=== PATIENT | female | born 1940 | race African-American/Black ===

== ENCOUNTER 2019-12-11 16:32 | Inpatient (IN) | payer OTHER ==
[~2019-12-11] VITALS: Ht 170.2 cm; Wt 122.5 kg
[2019-12-11 16:41] VITALS: BP 151/88
[2019-12-11] MEDS ORDERED: RISPERDAL0.5 MG PO (17:24)
[2019-12-11] MEDS ORDERED: ZOLOFT 50 MG TA50 MG PO (17:24)
[2019-12-11] MEDS ORDERED: DEPAKOTE125 MG PO (17:25)
[2019-12-11] MEDS ORDERED: SIMVASTATIN80 MG PO (17:26)
[2019-12-11] MEDS ORDERED: NORVASC 2.5 MG2.5 M1 PO (17:26)
--- NOTE | 2019-12-11 17:27 | NUR ---
PT WANDERING AROUND ROOM COMBATIVE, NOTIFED MD OF THIS. MD TO BEDSIDE
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
[2019-12-11 18:22] LABS: ABSOLUTE NEUTROPHILS 2.7 thou/uL (1.4-8.2); BASOPHILS 0.8 % (0.0-2.0); HEMATOCRIT 42.2 % (37.0-47.0); HEMOGLOBIN 13.5 gm/dL (12.0-15.0); LYMPHOCYTES 30.9 % (24.0-44.0); MCV 81.1 fL (80.0-100.0); MONOCYTES 5.9 % (1.0-8.0); PLATELET COUNT 168 thou/uL (150-400); POLYS 59.4 % (36.0-66.0); RDW 16.1 % (10.5-14.5); WBC 4.6 thou/uL (4.0-11.0)
[2019-12-11 18:27] LABS: ANION GAP 8 mmol/L (7-16); BUN 25 mg/dL (7-18); CALCIUM 8.9 mg/dL (8.5-10.1); CHLORIDE 106 mmol/L (98-107); CO2 28 mmol/L (21-32); CREATININE 1.2 mg/dL (0.6-1.0); GLUCOSE 118 mg/dL (74-106); POTASSIUM 3.4 mmol/L (3.5-5.1); SODIUM 142 mmol/L (136-145)
[2019-12-11 18:33] LABS: ALBUMIN 3.5 g/dL (3.4-5.0); DIRECT BILIRUBIN < 0.1 mg/dL (<0.1-0.2); SGOT 13 U/L (15-37); SGPT 17 U/L (30-65); TOTAL BILIRUBIN 0.2 mg/dL (<0.1-1.0); TOTAL PROTEIN 7.7 g/dL (6.4-8.2)
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
[2019-12-11 19:06] LABS: URINE BILIRUBIN NEGATIVE (Negative); URINE BLOOD NEGATIVE (Negative); URINE CLARITY SL CLOUDY; URINE COLOR YELLOW; URINE GLUCOSE-RANDOM* NEGATIVE (Negative); URINE KETONES NEGATIVE (Negative); URINE LEUKOCYTES-REFLEX NEGATIVE (Negative); URINE NITRITE-REFLEX NEGATIVE (Negative); URINE PROTEIN (DIPSTICK) NEGATIVE (Negative); URINE SPECIFIC GRAVITY >= 1.030 (1.005-1.035)
[2019-12-11 19:13] LABS: AMP/METHAMP Negative (Negative); BARBITURATES Negative (Negative); BENZODIAZEPINES Negative (Negative); COCAINE Negative (Negative); METHADONE Negative (Negative); OPIATES Negative (Negative); PCP Negative (Negative)
[2019-12-11 19:54] VITALS: BP 167/80
[2019-12-11 20:25] VITALS: BP 155/79; BP 84/43
--- NOTE | 2019-12-11 20:40 | NUR ---
BEDSIDE REPORT GIVEN TO FLAQUITA AT 2034
[2019-12-11 20:49] VITALS: BP 145/90
[2019-12-11 22:39] LABS: TSH 2.437 uIU/mL (0.358-3.740)
--- NOTE | 2019-12-12 01:43 | NUR ---
PT WAS ADMITTED TO THE UNIT FROM THE ER IN A STABLE CONDITION IN THE COMPANY OF HER SON.PT WAS CALM AND PLEASANT ON ADMIT.UP WITH ASSIST X1 TO THE BR.SITTER IN THE ROOM WITH PT.PT'S GRAND DTR AND SOME FAMILY MEMBRS VISITED WHEN PT WAS SETTLED IN.ADMISSION ASSESSMENT & HX PARTIALLY DONE DUE TO PT'S CONDITION.PT RESTING ON HER BED AT THIS TIME.FALL PRECAUTIONS IN PLACE,CALL LIGHT WITHIN REACH.
[2019-12-12 04:58] VITALS: BP 140/89
[2019-12-12 08:32] VITALS: BP 160/92
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
--- NOTE | 2019-12-12 15:36 | NUR ---
PT ALERT TO SELF ONLY. VSS, PT DENIES PAIN/SOA. PT UP TO RESTROOM WITH STANDBY ASSIST. PT TOLERATES MEDS AND MEALS. PT CLAM THIS MORNING.
== END 2019-12-12 17:31 | DRG 884 ==
LOC: EDBD 16:32 → ER 16:32 → EROBS 19:37 → 4S 19:37
PROVIDERS: Emergency Medicine; Nurse Practitioner Family; ADMIT Hospitalist
DX: F03.91 Unspecified dementia, unspecified severity, with behavioral disturbance (principal); N17.9 Acute kidney failure, unspecified; R45.850 Homicidal ideations; R45.1 Restlessness and agitation; R41.9 Unspecified symptoms and signs involving cognitive functions and awareness; F32.9 Major depressive disorder, single episode, unspecified; E78.00 Pure hypercholesterolemia, unspecified; E78.5 Hyperlipidemia, unspecified; E55.9 Vitamin D deficiency, unspecified; I12.9 Hypertensive chronic kidney disease with stage 1 through stage 4 chronic kidney disease, or unspecified chronic kidney disease; E87.6 Hypokalemia; N18.3 Chronic kidney disease, stage 3 (moderate); Z79.899 Other long term (current) drug therapy
CPT/HCPCS: 10100

== ENCOUNTER 2019-12-12 17:27 | Inpatient (IN) | payer OTHER ==
[~2019-12-12] VITALS: Ht 167.6 cm; Wt 91.8 kg
[~2019-12-12 17:27] MED LIST: DEPAKOTE125 MG PO; NORVASC 2.5 MG2.5 M1 PO; RISPERDAL0.5 MG PO; SIMVASTATIN80 MG PO; ZOLOFT 50 MG TA50 MG PO
[2019-12-12 17:30] VITALS: BP 164/84
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
[2019-12-12 19:37] VITALS: BP 149/79
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
[2019-12-13 09:03] VITALS: BP 152/74
--- NOTE | 2019-12-13 17:18 | NUR ---
PT VERY CONFUSED AND AGITATED. UNABLE TO ANSWER ASSESSMENT QUESTIONS. PT REFUSED BREAKFAST AND LUNCH, ONLY ATE A VERY SMALL PORTION OF DINNER. PT HAS AUDITORY AND VISUAL HALUCINATIONS. PT HAS TAKEN MEDS CRUSHED IN APPLE SAUCE. PT UP IN THE DINNING ROOM FOR MOST OF THE DAY. WILL CONTINUE TO MONITOR.
--- NOTE | 2019-12-14 04:43 | NUR ---
PROVIDED HS MEDS CRUSHED IN ICE CREAM. PRN ZYPREXA 10 MG PO PROVIDED FOR AGITATION @ 20:30. GRABBING AT STAFF WHO APPROACH HER CLOSE ENOUGH FOR HER TO REACH. SPEAKS IN NONSENSE AND STRINGS WORDS TOGETHER WITHOUT COMPLETE THOUGHTS OR SENTENCES. REFUSES ASSESSMENT. REFUSED TO GO TO BED @ . SAT IN RECLINER AND SLEPT SOME THROUGHOUT THE NIGHT, THEN AWOKEN EARLY IN THE A.M. CONTINUES TO BE CONFUSED AND AGITATED.
--- NOTE | 2019-12-14 05:53 | NUR ---
SLEPT 7.6 HOURS
--- NOTE | 2019-12-14 05:55 | NUR ---
SLEPT 5 HOURS
[2019-12-14 09:20] VITALS: BP 126/92
[2019-12-14 09:58] VITALS: BP 126/92
--- NOTE | 2019-12-14 11:35 | NUR ---
0715 RESUMMED CARE FROM OVERNIGHT SHIFT, PATIENT IN DAY ROOM IN CHAIR WAITING FOR BREAKFAST. PATIENT WAS AGITATED THIS MORNING WHEN TRYING TO GIVE MEDICATION. PATIENT TOOK MEDICATION CRUSHED IN APPLESAUCE, SHE IS CONFUSED AND TALKS TO HERSELF OUT LOUD. PATIENT WILL CONTINUED TO BE MONITORED FOR SAFETY AND BEHAVIORS.
--- NOTE | 2019-12-14 14:58 | NUR ---
FABRIZIO faxed updates to [facility] at [phone]. FABRIZIO team will continue to follow pt during her stay on this unit.
[2019-12-14 20:15] VITALS: BP 106/70
--- NOTE | 2019-12-14 23:06 | NUR ---
Care assumed of patient at 1915: Patient seated in recliner in room at start of shift. Staff entered room to assess vital signs. Patient became combative by hitting and yelling. Initially refused vitals. Patient provided PRN Olanzapine PO with HS medications crushed in pudding. Patient did take one 3 bites but started to become agitated. All medications were consumed. Patient showing no s/s of pain or discomfort. Blunted affect, disorganized thoughts, flight of ideas. Responded to name being called but was unable to state her name independently. Confused and forgetful. Patient speaking to herself. Unknown if experiencing any delusions or hallucinations. No s/s of SI/HI thoughts. Patient approached 1 hour after taking medications. Patient much more calm. Allowed vital signs to be assessed, allowed nurse to speak with and assess her. Presented with more bright affect, smiling and laughing while mumbling some words. Patient was able to be assisted to bed and provided rick care with no aggression shown. Patient resting quietly in bed at this time.
[2019-12-15 09:50] VITALS: BP 153/75
--- NOTE | 2019-12-15 12:10 | NUR ---
PATIENT HAS BEEN CALM AND VERY LETHARGIC THIS MORNING. SLEEPING IN DINING AREA- ABLE TO GIVE CRUSHED MEDICATIONS IN YOGURT. HANDLED WELL. PATIENT NEEDS TO BE ENCOURAGED TO DRINK MORE FLUIDS. PATIENT NEEDS ALOT ENCOURAGEMENT TO EAT. NON RESPONSIVE TO MANY ASSESSMENT QUESTIONS ADDRESSED TO HER.
--- NOTE | 2019-12-15 12:19 | NUR ---
FABRIZIO contacted [facility] and spoke to Shikha who said Wednesday d/c is okay. Shikha and FABRIZIO planned for a 11am cook pickled meat by GP transportation. FABRIZIO advised Shikha to crush pt's meds up into pudding and yogurt; she does not like taking pills but will take meds that way. SW team will continue to follow pt during her stay on this unit.
--- NOTE | 2019-12-15 13:45 | NUR ---
PATIENT HAS BEEN VERY LETHARGIC TODAY. AROUSED FOR MEALS AND NEEDED ENCOURAGEMENT AND ASSISTANCE TO EAT. MEDICATION COMPLIANT - MEDS CRUSHED AND ENJOYED IN STRAWBERRY YOGURT. PATIENT HAD 10 MG. OF ZYPREXA AT 1932 LAST EVENING AND APPEARS TO HAVE MADE HER VERY TIRED. NON RESPONSIVE TO QUESTIONS ADDRESSED TO HER.
--- NOTE | 2019-12-15 13:52 | NUR ---
PATIENT HAS BEEN UP IN DINING AREA ALL DAY. UNRESPONSIVE TO QUESTIONS ADDRESSED TO HER. LETHARGIC - ABLE TO AROUSE FOR MEALS BUT NEEDS ASSISTANCE - MEDICATIONS ADMINISTERED CRUSHED IN YOGURT WHICH SHE ENJOYED. STAFF HAS APPROACHED TO ASK ABOUT FAMILY MEMBER VISITING BUT DID NOT RESPOND -
[2019-12-15 19:30] VITALS: BP 159/69
[2019-12-15 20:49] LABS: ABSOLUTE NEUTROPHILS 10.9 thou/uL (1.4-8.2); BASOPHILS 0.2 % (0.0-2.0); EOSINOPHILS 0.4 % (0.0-3.0); HEMATOCRIT 48.5 % (37.0-47.0); HEMOGLOBIN 15.9 gm/dL (12.0-15.0); LYMPHOCYTES 8.1 % (24.0-44.0); MCH 26.6 pg (26.0-34.0); MCHC 32.8 g/dL (28.0-37.0); MCV 81.3 fL (80.0-100.0); MONOCYTES 5.2 % (1.0-8.0); PLATELET COUNT 125 thou/uL (150-400); POLYS 86.1 % (36.0-66.0); RBC 5.97 mil/uL (4.20-5.00); RDW 16.2 % (10.5-14.5); WBC 13.7 thou/uL (4.0-11.0)
[2019-12-15 23:31] LABS: ALBUMIN 3.9 g/dL (3.4-5.0); CALCIUM 9.7 mg/dL (8.5-10.1); CREATININE 2.1 mg/dL (0.6-1.0); POTASSIUM 4.1 mmol/L (3.5-5.1); TOTAL BILIRUBIN 0.5 mg/dL (<0.1-1.0); TOTAL PROTEIN 9.1 g/dL (6.4-8.2)
--- NOTE | 2019-12-16 03:47 | NUR ---
ASSUMED CARE OF PATIENT ON 12/15/19 AT 1915, AT THE BEGINNING OF THE SHIFT, PATIENT WAS OBSERVED WITH COFFEE GROUND EMESIS COVERING HER CLOTHING AND BLANKETS. NURSING STAFF NOTIFIED JOE GALLEGOS NP. ORDERS FOR KUB AND LABS ORDERED. PATIENT APPEARS LETHARGIC, SLOW TO ANSWER QUESTIONS APPEARS TO BE IN A CATATONIC STATE. SHE WILL NOT ANSWER ANY ASSESSMENT QUESTIONS NOR WOULD SHE ALLOW THIS RN TO AUSCULTATE HER HEART AND LUNGS. THIS NURSE ADMINISTERED FAMOTIDINE ORDERED AND PATIENT HAS NOT HAD ANY OTHER EPISODES OF EMESIS. MONITORED PATIENT THROUGH THE EVENING RR EVEN AND UNLABORED, PATIENT WITH EYES CLOSED BUT MOVING LEGS AND ARMS SPORADICALLY. VSS. NURSING WILL CONTINUE TO MONITOR THROUGHOUT THE EVENING.
[2019-12-16 09:12] VITALS: BP 157/69
--- NOTE | 2019-12-16 14:41 | NUR ---
Lying supine in bed without s/o distress. Occassionally mumbles rambling words. Squeezes hands upon command. Disorientated to person, place,time and situation. No speech/gestures suggestive of SI/HI. Breath sounds clear t/o, bilaterally equal. Reg HR auscultated. Color pink with brisk capillary refill and palpable peripheral pulses +1/+4. No urine per brief, only smear of dark brown stool. Active bowel sounds over large, soft, rounded abdomen. Placed in recliner and brought to dining room. 1000 22 g jelco placed per L hand on 2nd attempt after prepping with alcohol. 1 L NS hung and to infuse over 4 hrs. Site soft and flat, flushes easily. Took AM meds without difficulty crushed in yogurt. 1400 Granddaughter and great grandchildren here visiting. Expressing appropriate questions and concerns. Several attempts to open eyes and some rambling speech but continues to sleep most of the time. Ate 8 oz yogurt and 4 oz thickened H2O without difficulty for lunch. No s/o distress. but continues to sleep most of the time.
== END 2019-12-16 16:50 | DRG 884 ==
LOC: SBH 17:27 → ICU 12-16 16:35 → SBH 12-16 16:44
PROVIDERS: Nurse Practitioner; ADMIT Psychiatry & Neurology Psychiatry
PROC: 5A1935Z Respiratory Ventilation, Less than 24 Consecutive Hours (ICD-10-PCS; principal; 2019-12-16)
PROC: 5A12012 Performance of Cardiac Output, Single, Manual (ICD-10-PCS; principal; 2019-12-16)
DX: F03.91 Unspecified dementia, unspecified severity, with behavioral disturbance (principal); N17.9 Acute kidney failure, unspecified; E78.5 Hyperlipidemia, unspecified; E87.6 Hypokalemia; I10 Essential (primary) hypertension; F32.9 Major depressive disorder, single episode, unspecified; Z79.899 Other long term (current) drug therapy
CPT/HCPCS: 10880

== ENCOUNTER 2019-12-16 16:52 | Inpatient (IN) | payer OTHER ==
[2019-12-16] VITALS (29 sets, daily range): BP systolic 80–145; BP diastolic 32–88
[~2019-12-16] VITALS: Ht 170.2 cm; Wt 95.1 kg
--- NOTE | 2019-12-16 16:20 | NUR ---
PT CAME FROM PSYCH FLOOR POST CODE AND BROUGHT DOWN TO ICU FOR ADMISSION 245 BAGING PT UPON [address]IVAL. DR[address] NEWMAN INTUBATED PT AFTER MEDS GIVEN SEE MAR FOR TIME OF ADMINISTRATION. SINUS RHYTHM ON THE MONITOR . FLUIDS GIVEN AND LEVO FOR BLOOD PRESSURE SUPPORT. SON ARIVED AND SPOKE TO IN REGARDS TO HIS MOM. SHE HAS DEMENTIA AND HE REPORTS THEY HAVENT BEEN GIBVING HER MEDS AND SHE HAS BEEN AGRESIVE. RESTRAINTS ON AND PT ON THE VENT NOW. ONGOING NURSING CARE OF PT AT THIS TIME. STABLE AT THIS TIME PER CARE
[2019-12-16 17:38] LABS: HEMATOCRIT 44.7 % (37.0-47.0); HEMOGLOBIN 14.2 gm/dL (12.0-15.0); MCH 26.2 pg (26.0-34.0); MCHC 31.7 g/dL (28.0-37.0); MCV 82.6 fL (80.0-100.0); RBC 5.41 mil/uL (4.20-5.00); RDW 17.1 % (10.5-14.5); WBC 10.4 thou/uL (4.0-11.0)
[2019-12-16 17:43] LABS: BE(vivo) -8.6 mmol/L (-2 to +3); HCO3 18.2 mmol/L (22.0-26.0); PCO2 41.9 mmHg (35.0-45.0); PO2 357.3 mmHg (80.0-100.0); sO2 99.7 % (92.0-98.0)
[2019-12-16 17:44] LABS: pH 7.255 (7.360-7.450)
[2019-12-16 17:52] LABS: ALBUMIN 3.2 g/dL (3.4-5.0); BUN 57 mg/dL (7-18); CALCIUM 8.6 mg/dL (8.5-10.1); CHLORIDE 105 mmol/L (98-107); CO2 18 mmol/L (21-32); GLUCOSE 320 mg/dL (74-106); MAGNESIUM 2.4 mg/dL (1.8-2.4); PHOSPHORUS 5.8 mg/dL (2.5-4.9); POTASSIUM 4.4 mmol/L (3.5-5.1); SGOT 219 U/L (15-37); SGPT 228 U/L (30-65); TOTAL BILIRUBIN 0.6 mg/dL (<0.1-1.0); TOTAL PROTEIN 7.8 g/dL (6.4-8.2); TROPONIN-I <0.06 ng/mL (<0.06)
[2019-12-16 17:53] LABS: ANION GAP 14 mmol/L (7-16)
[2019-12-16 17:55] LABS: CREATININE 4.6 mg/dL (0.6-1.0)
[2019-12-16 17:56] LABS: SODIUM 137 mmol/L (136-145)
--- NOTE | 2019-12-16 18:46 | NUR ---
CONSULTED TO PLACE A CENTRAL LINE FOR A PATIENT POST CODE. THE PATIENT WAS UNRESPONSIVE AND DPOA NOT AVAILABLE. WE DID DISCUSS PLACEMENT WELL BENIFITS AND RISKS WITH THE SON, DR. ANGLIN SIGNED MEDICAL NECESSITY. THE RIGHT JUGULAR VEIN WAS WIDLEY PATENT. A #6F TRIPLE LUMEN POWER INJECTABLE CENTRAL LINE WAS PLACED WITHOUT DIFFICULTY. LINE WAS 25CM AND ADVANCED TO 7CM EXTERNAL. A STAT CHEST XRAY WAS ORDERED FOR CONFIRMATION.
[2019-12-16 20:04] LABS: URINE BILIRUBIN NEGATIVE (Negative); URINE BLOOD 3+ (Negative); URINE CLARITY CLEAR; URINE COLOR YELLOW; URINE GLUCOSE-RANDOM* 1+ (Negative); URINE KETONES NEGATIVE (Negative); URINE NITRITE-REFLEX NEGATIVE (Negative); URINE PROTEIN (DIPSTICK) 1+ (Negative)
[2019-12-16 20:05] LABS: URINE LEUKOCYTES-REFLEX 1+ (Negative)
[2019-12-16 20:12] LABS: CASTS None Seen /LPF (None Seen); CRYSTALS None Seen /LPF (None Seen); SQUAMOUS 0-3 Few /LPF (0-3); URINE RBC >20 Many /HPF (0-2)
[2019-12-16 20:13] LABS: BACTERIA-REFLEX 1-9 Few /HPF (None Seen); URINE WBC-REFLEX 0-5 Rare /HPF (0-5)
[2019-12-16 20:18] LABS: CALCIUM 7.9 mg/dL (8.5-10.1); POTASSIUM 3.8 mmol/L (3.5-5.1); TROPONIN-I 0.3 ng/mL (<0.06)
[2019-12-16 20:19] LABS: CREATININE 3.4 mg/dL (0.6-1.0)
[2019-12-17] VITALS (87 sets, daily range): BP systolic 80–176; BP diastolic 32–94
[2019-12-17 05:11] LABS: BE(vivo) -3.1 mmol/L (-2 to +3); HCO3 20.9 mmol/L (22.0-26.0); PO2 154.9 mmHg (80.0-100.0); pH 7.406 (7.360-7.450)
[2019-12-17 05:57] LABS: HEMATOCRIT 38.5 % (37.0-47.0); MCH 25.9 pg (26.0-34.0); MCHC 31.7 g/dL (28.0-37.0); MCV 81.6 fL (80.0-100.0); RBC 4.72 mil/uL (4.20-5.00); RDW 16.5 % (10.5-14.5); WBC 11.4 thou/uL (4.0-11.0)
[2019-12-17 05:58] LABS: HEMOGLOBIN 12.2 gm/dL (12.0-15.0)
[2019-12-17 06:46] LABS: CALCIUM 8.2 mg/dL (8.5-10.1); MAGNESIUM 2.2 mg/dL (1.8-2.4); POTASSIUM 3.2 mmol/L (3.5-5.1)
[2019-12-17 06:50] LABS: CREATININE 1.5 mg/dL (0.6-1.0); TROPONIN-I 0.73 ng/mL (<0.06)
[2019-12-17 09:34] LABS: HEMOGLOBIN 13.3 gm/dL (12.0-15.0); MCH 26.3 pg (26.0-34.0); MCHC 32.5 g/dL (28.0-37.0); RBC 5.06 mil/uL (4.20-5.00); WBC 9.2 thou/uL (4.0-11.0)
[2019-12-17 09:45] LABS: APTT 29.6 Seconds (24.5-32.8); INR 1.2
--- NOTE | 2019-12-17 15:32 | NUR ---
PT REMAINS ON THE VENT WITH SEDATION MODERATE. FAMILY AT BEDSIDE TO VISIT PT REAMINS CALM AT THIS TIME. BILATERAL WRIST RESTRAINTS IN PLACE AT THIS TIME. FAMILY REPORTS SHE CAN BE AGRESSIVE. SINUS TACH ON THE MONITOR. BLOOD PRESSURE STABLE. ON HEPARIN FOR CLOTS. MAINTAING DRIP. URINE IS BLOODY NOTIFIED DR. REGALADO. NO NEW ORDERES AT THIS TIME. WILLL CONTINUE TO PROGRESS TOWARDS GOALS
[2019-12-17 17:37] LABS: CALCIUM 8.1 mg/dL (8.5-10.1); CREATININE 1.1 mg/dL (0.6-1.0); POTASSIUM 3.4 mmol/L (3.5-5.1)
[2019-12-17 18:14] LABS: HEMATOCRIT 36.5 % (37.0-47.0); HEMOGLOBIN 11.9 gm/dL (12.0-15.0); MCH 26.4 pg (26.0-34.0); MCHC 32.5 g/dL (28.0-37.0); MCV 81.2 fL (80.0-100.0); RBC 4.5 mil/uL (4.20-5.00); RDW 16.1 % (10.5-14.5); WBC 8.2 thou/uL (4.0-11.0)
--- NOTE | 2019-12-17 19:00 | NUR ---
TURNED OFF HEPARIN DRIP PER DR. CALHOUN ORDER. AND INTERVENTIONAL RADIOLOGY CAME FOR PT FOR PROCEDURE. AND CONSENT ON CHART FOR PT. IVC FILTER PLACMENT
--- NOTE | 2019-12-17 21:00 | NUR ---
pt went down to IR at approximate 1930 for ivc filter placement. Obtained consent from daughter Mallory. pt arrived from IR with nurses at approximate 2100. sedation vacation performed at 2130, patient doesn't follow commands. opens eyes and frowns to sternal rub when propofol was shut off. tolerating vent settings. pt supine for 3hrs after ivc filter placement till 0000. right groin site soft to palpation, no hematoma or bleeding noted. tube feeding restarted at 0050, after placed on hold d/t patient being supine. noted eliseo blood from pantoja. on levophed for bp support. family educated about care. will continue to monitor.
[2019-12-18] VITALS (53 sets, daily range): BP systolic 93–161; BP diastolic 31–133
[2019-12-18 06:28] LABS: HEMATOCRIT 33.5 % (37.0-47.0); HEMOGLOBIN 11.1 gm/dL (12.0-15.0); MCH 26.9 pg (26.0-34.0); MCHC 33.1 g/dL (28.0-37.0); MCV 81.3 fL (80.0-100.0); RBC 4.12 mil/uL (4.20-5.00); RDW 16.3 % (10.5-14.5); WBC 7.7 thou/uL (4.0-11.0)
[2019-12-18 06:43] LABS: ALBUMIN 2.3 g/dL (3.4-5.0); CALCIUM 7.6 mg/dL (8.5-10.1); CREATININE 0.8 mg/dL (0.6-1.0); DIRECT BILIRUBIN 0.2 mg/dL (<0.1-0.2); POTASSIUM 4.1 mmol/L (3.5-5.1); TOTAL BILIRUBIN 0.4 mg/dL (<0.1-1.0); TOTAL PROTEIN 5.5 g/dL (6.4-8.2)
--- NOTE | 2019-12-18 10:51 | NUR ---
Nutrition: Due to propofol demands/estimated needs, Current TF order will overfeed pt. REC change formula to Vital HP at 40 mL/hr. Also rec vitamin D supplementation for vitamin D level of 13.6.
--- NOTE | 2019-12-18 12:18 | NUR ---
chart review, pt on vent. will cont following as needed for dc need. pt was at home with prior to hospital, then [facility] and now back to hospital icu. not family at bedside at this time will cont following as needed for dc needs.
--- NOTE | 2019-12-18 12:58 | 2DMMODE ---
[facility] [place] [address] 2 D/M-MODE ECHOCARDIOGRAM Name: PRESTON MCNEILL Room #: 245-P ADM IN M.R.#: [id number] Admission: 12/16/19 Attend Phys: Garett Aquino MD Discharge: Date of : 36 Report #: [id number] THIS REPORT FOR: cc: Natalee Echeverria MD, Malathi MD Lundgren,Alfredo Inman MD [facility] ~ APPROVED REPORT Study performed: 12/18/2019 08:58:53 EXAM: Comprehensive 2D, Doppler, and color-flow Echocardiogram Patient Location: ICU Room #: 245 Status: routine BSA: 2.03 HR: 83 bpm BP: 107/41 mmHg Rhythm: NSR Other Information Study Quality: Adequate Indications Syncope 2D Dimensions RVDd: 40.08 mm IVSd: 14.43 (7-11mm) LVOT Diam: 20.49 (18-24mm) LVDd: 45.42 mm PWd: 12.65 (7-11mm) Ascending Ao: 28.42 (22-36mm) LVDs: 19.80 (25-40mm) Aortic Root: 25.70 mm IVC: 19.00 mm Volumes Left Atrial Volume (Systole) Single Plane 4CH: 62.07 mL Single Plane 2CH: 46.68 mL LA ESV Index: 28.00 mL/m2 Aortic Valve AoV Peak Rg.: 4.31 m/s AO Peak Gr.: 74.29 mmHg LVOT Max P.89 mmHg AO Mean Gr.: 38.22 mmHg LVOT Mean P.78 mmHg AO V2 Mean: 2.86 m/s LVOT Max V: 3.87 m/s AO V2 VTI: 77.06 cm LVOT Mean V: 2.60 m/s [facility] [place] [address] 2 D/M-MODE ECHOCARDIOGRAM Name: MCNEILL,PRESTON Room #: 245-P ADM IN M.R.#: [id number] Admission: 12/16/19 Attend Phys: Garett Aquino, Discharge: Date of : 38 Report #: [id number] HAILY (VTI): 2.89 cm2 LVOT V1 VTI: 67.45 cm HAILY Vmax: 2.96 cm2 AI Vmax: 3.82 m/s SV (LVOT): 222.39 mL AI [place]: 2.49 m/s2 AI PHT: 444.51 ms Mitral Valve E/A Ratio: 0.8 MV Decel. Time: 291.89 ms MV E Max Rg.: 0.75 m/s MV A Rg.: 0.89 m/s MV PHT: 84.65 ms IVRT: 121.11 ms Pulmonary Valve PV Peak Rg.: 1.30 m/s PV Peak Gr.: 6.74 mmHg Pulmonary Vein P Vein S: 0.70 m/s P Vein A: 0.40 m/s P Vein D: 0.45 m/s P Vein A Dur.: 90.0 msec P Vein S/D Ratio: 1.56 Tricuspid Valve TR Peak Rg.: 3.26 m/s TR Peak Gr.: 42.47 mmHg Left Ventricle The left ventricle is normal size. There is normal LV segmental wall motion. Mild to moderate concentric left ventricular hypertrophy. Left ventricular systolic function is hyperdynamic. LVOT outflow tract gradient (Peak 74mm Hg, mean 38mmHg); cannot exclude subaortic membrane. LVEF is >70%. Mild diastolic dysfunction Right Ventricle Right ventricle is at the upper limits of normal. The right ventricular systolic function is normal. Atria The left atrium size is normal. Right atrium is at the upper limits of normal. Aortic Valve Aortic valve is mildly calcified, possibly mildly stenotic. Mild aortic regurgitation[place] [address] 2 D/M-MODE ECHOCARDIOGRAM Name: PRESTON MCNEILL Room #: 245-P [facility] IN M.R.#: [id number] Admission: 12/16/19 Attend Phys: Garett Aquino, Discharge: Date of : 38 Report #: [id number] The mitral valve is normal in structure. Trace mitral regurgitation. No evidence of mitral valve stenosis. Tricuspid Valve The tricuspid valve is normal in structure. Trace tricuspid regurgitation. PAP is estimated at 45 mmHg. Pulmonic Valve Pulmonic valve is not well visualized. Trace pulmonic regurgitation. Great Vessels The aortic root is normal in size. IVC is normal in size. Pericardium There is no pericardial effusion. <Conclusion> Left ventricular systolic function is hyperdynamic. LVOT outflow tract gradient (Peak 74mm Hg, mean 38mmHg); cannot exclude subaortic membrane. There is normal LV segmental wall motion. LVEF is >70%. Mild diastolic dysfunction Aortic valve is mildly calcified, possibly mild-moderately stenotic. Mild aortic regurgitation. The mitral valve is normal in structure. Trace mitral regurgitation. Trace tricuspid regurgitation. Pulmonary artery pressure estimated at 45 mmHg. There is no pericardial effusion. <ELECTRONICALLY SIGNED> By: Alfredo Hendrix MD, FACC 12/18/19 1257 1257 1257 Alfredo Hendrix MD, FACC /INF
--- NOTE | 2019-12-18 12:58 | NUR ---
ON THE VENT LIGHTLY SEDATED, TITRATING SEDATION DOWN TOLERATED. VITALS STABLE ON LOW DOSE LEVOPHED FOR BP SUPPORT. TUBEFEEDING PER OGT AND SLOWLY PROGRESSING TOWARDS GOAL. CARD WITH BLOOD TINGED URINE AND CLEARING, ADEQUATE OUTPUT NOTED. FAMILY AT THE BEDSIDE AND UPDATED BY PHYSICIANS THEY ROUNDED.
[2019-12-19] VITALS (19 sets, daily range): BP systolic 87–142; BP diastolic 27–48
--- NOTE | 2019-12-19 05:48 | NUR ---
ASSUMED PT CARE AROUND 1900. PT REMAINS LIGHTLY SEDATED ON VENTILATOR. VSS. GIVEN TYLENOL FOR FEVER. TEMP IMPROVED. GRANDDAUGHTER CAME TO VISIT EARLIER IN THE SHIFT. REPOSITIONED FREQUENTLY TO PREVENT SKIN BREAKDOWN. COMPLETE BATH GIVEN. BLOOD IN URINE APPEARS TO BE IMPROVING. MINIMAL RESIDUALS FROM TUBE FEEDING. PROGRESSING SLOWLY TOWARD POC GOALS. WILL CONTINUE TO MONITOR.
[2019-12-19 05:49] LABS: CALCIUM 7.8 mg/dL (8.5-10.1); CREATININE 0.8 mg/dL (0.6-1.0); MAGNESIUM 2.1 mg/dL (1.8-2.4); POTASSIUM 4.2 mmol/L (3.5-5.1)
[2019-12-19 05:57] LABS: HEMATOCRIT 31.8 % (37.0-47.0); HEMOGLOBIN 10.3 gm/dL (12.0-15.0); MCH 26.5 pg (26.0-34.0); MCHC 32.5 g/dL (28.0-37.0); MCV 81.5 fL (80.0-100.0); RBC 3.9 mil/uL (4.20-5.00); RDW 16.3 % (10.5-14.5); WBC 8.3 thou/uL (4.0-11.0)
--- NOTE | 2019-12-19 09:38 | NUR ---
per [facility] transfer team, denied per md, urology is outpt. per message. spoke with MD and still wanting pt to be transferred and [place] [facility] will need to be started on her anticoagulation and need monitor rt bleeding. referral [place] [facility] will cont following as needed for dc needs.
[2019-12-19 10:49] LABS: HEMATOCRIT 29.9 % (37.0-47.0); HEMOGLOBIN 9.8 gm/dL (12.0-15.0); MCH 26.8 pg (26.0-34.0); MCV 81.5 fL (80.0-100.0); RBC 3.67 mil/uL (4.20-5.00); RDW 16.2 % (10.5-14.5); WBC 8.1 thou/uL (4.0-11.0)
--- NOTE | 2019-12-19 10:57 | NUR ---
FABRIZIO received a call from Shikha with [facility]. FABRIZIO provided her an update on pt's status and told her what unit she is in, and who her nurse his for the day.
[2019-12-19 11:03] LABS: PROTIME 10.6 Seconds (9.3-11.4)
--- NOTE | 2019-12-19 14:23 | NUR ---
FABRIZIO contacted [facility] at 1415 and spoke with Tootie. [facility] are currently on diversion, as they do not have any beds available. They are not accepting any outside transfers at this time unless a trauma case. FABRIZIO notified that [facility] did have a bed available, but pt's family do not want her to go to [facility], due to previous experience. FABRIZIO contacted [facility] and spoke with Gay, who states they do not have any beds available at this time. [facility] is at capacity and not accepting transfers. FABRIZIO updated attending physician and [facility] [employer] CM and UR RN.
--- NOTE | 2019-12-19 17:41 | NUR ---
PT ASSESSMENTS DOCUMENTED. ORDERS TO RESTART HEPARIN GTT THIS AM PER DR. ANGLIN. INITIATED WITH NO BOLUS PER ORDERS. WHILE MONITORING URINE OUTPUT, NOTICED INCREASE IN HEMATURIA POST INITAITON OF HEPARIN GTT. DR. ANGLIN UPDATED. ORDERS TO D/C GTT. PT TO BE TRANSFERRING TO [facility]. REMAINS STABLE ON VENT. REMAINS OFF PRESSORS. VSS. AFEBRILE. PROPOFOL FOR SEDATION. TUBE FEEDINGS RUNNING WITH NO RESIDUALS. REPORT CALLED TO HOMER MorganRN) AT [facility]. FAMILY NOTIFIED ABOUT TRANSFER.
--- NOTE | 2019-12-19 18:50 | NUR ---
PT TRANSFERRED TO [facility] WITH CENTRAL LINE IN PLACE
--- NOTE | 2019-12-20 12:42 | EKG ---
[facility] [place] [address] ELECTROCARDIOGRAM REPORT Name: PRESTON MCNEILL Room #: 245- DIS IN M.R.#: [id number] Admission: 12/16/19 Attend Phys: Garett Aquino MD Discharge: 12/19/19 Date of : 36 Report #: [id number] THIS REPORT FOR: cc: Natalee Echeverria MD, Malathi MD Lundgren,Alfredo Inman MD [facility] THIS REPORT FOR: //name// [facility] Test Date: 2019-12-17 Test Time: 07:40:21 Pat Name: PRESTON MCNEILL Department: Room: 245 Gender: F Wedding Designer: Jude TAVERAS : 1940 Requested By: Trenton Hernandez Order Number: [id number] MD: Alfredo Hendrix Measurements Intervals [place] Rate: 49 P: 0 UT: 153 QRS: 20 QRSD: 122 T: -18 QT: 561 QTc: 507 Interpretive Statements Sinus bradycardia Prolonged QT interval No previous ECG available for comparison Electronically Signed On 12-18-2019 7:45:31 HEARING AID REPAIR TECHNICIAN by Alfredo Hendrix [email or web address] <ELECTRONICALLY SIGNED> By: Alfredo Hendrix MD, [facility] 12/18/19 0745 Alfredo Hendrix MD, [facility] /EPI
--- NOTE | 2019-12-20 12:42 | EKG ---
[facility] [place] [address] ELECTROCARDIOGRAM REPORT Name: PRESTON MCNEILL Room #: 245- DIS IN M.R.#: [id number] Admission: 12/16/19 Attend Phys: Garett Aquino MD Discharge: 12/19/19 Date of : 36 Report #: [id number] THIS REPORT FOR: cc: Natalee Echeverria MD, Malathi MD Lundgren,Alfredo Inman MD [facility] THIS REPORT FOR: //name// [facility] Test Date: 2019-12-18 Test Time: 07:13:40 Pat Name: PRESTON MCNEILL Department: Room: 245 P Gender: F Food Consultant: MIRANDA : 1940 Requested By: Nika Malhotra Order Number: [id number] MD: Alfredo Henrdix Measurements Intervals [place] Rate: 60 P: 59 GA: 137 QRS: -5 QRSD: 87 T: 2 QT: 520 QTc: 520 Interpretive Statements Sinus rhythm Prolonged QT interval No previous ECG available for comparison Electronically Signed On 12-18-2019 9:41:23 VP OF GLOBAL MARKETING by Alfredo Hendrix [email or web address] <ELECTRONICALLY SIGNED> By: Alfredo Hendrix MD, [facility] 12/18/19 0941 2 2 Alfredo Hendrix MD, [facility] /EPI
--- NOTE | 2019-12-20 12:42 | EKG ---
[facility] [place] [address] ELECTROCARDIOGRAM REPORT Name: PRESTON MCNEILL Room #: 245- DIS IN M.R.#: [id number] Admission: 12/16/19 Attend Phys: Garett Aquino MD Discharge: 12/19/19 Date of : 36 Report #: [id number] THIS REPORT FOR: cc: Natalee Echeverria MD, Malathi MD Lundgren,Alfredo Inman MD [facility] THIS REPORT FOR: //name// [facility] Test Date: 2019-12-16 Test Time: 16:41:48 Pat Name: PRESTON MCNEILL Department: Room: 245 P Gender: F Biochemistry Specialist: OG : 1940 Requested By: Garett Aquino Order Number: [id number] MD: Alfredo Hendrix Measurements Intervals [place] Rate: 105 P: 77 OR: 133 QRS: 66 QRSD: 146 T: 28 QT: 414 QTc: 548 Interpretive Statements Sinus tachycardia Atrial premature complexes Right bundle branch block No previous ECG available for comparison Electronically Signed On 12-18-2019 7:32:44 POSTDOCTORAL FELLOW by Alfredo Hendrix [email or web address] <ELECTRONICALLY SIGNED> By: Alfredo Hendrix MD, [facility] 12/18/19 0732 164 164 Alfredo Hendrix MD, [facility] /EPI
== END 2019-12-19 18:00 | disposition short-term general hospital (02) | DRG 166 ==
LOC: ICU 16:52
PROVIDERS: Internal Medicine Pulmonary Disease; Nurse Practitioner Adult Health; ADMIT Internal Medicine
DX: I26.99 Other pulmonary embolism without acute cor pulmonale (principal); J96.21 Acute and chronic respiratory failure with hypoxia; I46.9 Cardiac arrest, cause unspecified; K72.00 Acute and subacute hepatic failure without coma; I47.2 Ventricular tachycardia; G93.40 Encephalopathy, unspecified; F03.91 Unspecified dementia, unspecified severity, with behavioral disturbance; N17.9 Acute kidney failure, unspecified; E87.2 Acidosis; I82.431 Acute embolism and thrombosis of right popliteal vein; I82.441 Acute embolism and thrombosis of right tibial vein; I82.452 Acute embolism and thrombosis of left peroneal vein; I82.4Z3 Acute embolism and thrombosis of unspecified deep veins of distal lower extremity, bilateral; E78.5 Hyperlipidemia, unspecified; I95.9 Hypotension, unspecified; F32.9 Major depressive disorder, single episode, unspecified; E78.00 Pure hypercholesterolemia, unspecified; I12.9 Hypertensive chronic kidney disease with stage 1 through stage 4 chronic kidney disease, or unspecified chronic kidney disease; N18.9 Chronic kidney disease, unspecified; E87.6 Hypokalemia; R59.9 Enlarged lymph nodes, unspecified; R31.9 Hematuria, unspecified; Z79.899 Other long term (current) drug therapy; I82.462 Acute embolism and thrombosis of left calf muscular vein
CPT/HCPCS: 10078; 10204